=== PATIENT | male | born 1950 | race African-American/Black ===

== ENCOUNTER 2020-01-30 01:01 | Inpatient (IN) | payer MEDICARE, MEDICAID ==
[~2020-01-30] VITALS: Ht 182.9 cm; Wt 88.0 kg
[2020-01-30] MEDS ORDERED: SODIUM CHLORIDE 0.9% 1,000 ML IV ONE (01:30)
[2020-01-30] MEDS ORDERED: NALOXONE HCL 1 MG/ML 2ML VIAL IV ONE (01:30)
[2020-01-30 01:57] LABS: BASOPHILS % 0.3 % (0.0-2.0); EOSINOPHILS % 5.3 % (0.0-5.0); HEMATOCRIT. 50.5 % (42.0-52.0); HEMOGLOBIN. 16.9 g/dL (14.0-18.0); LYMPHOCYTES % 19.9 % (20.0-50.0); MEAN CORPUSCULAR HEMOGLOBIN 27.8 pg (28.0-32.0); MEAN PLATELET VOLUME 8.2 fl (7.4-10.4); MONOCYTES % 5.5 % (2.0-8.0); PLATELET 195 x1000/uL (130-400); RED BLOOD CELL COUNT 6.08 mill/uL (4.7-6.1); RED CELL DISTRIBUTION WIDTH 16.4 % (11.6-14.6)
[2020-01-30 02:01] LABS: CLARITY URINE CLEAR (CLEAR); COLOR URINE YELLOW (YELLOW); KETONES URINE NEGATIVE (NEGATIVE); LEUKOCYTE ESTERASE URINE TRACE (NEGATIVE); NITRITE URINE NEGATIVE (NEGATIVE); OCCULT BLOOD URINE 3+ (NEGATIVE); PROTEIN URINE TRACE (NEGATIVE); SPECIFIC GRAVITY URINE 1.011 (1.005-1.030)
[2020-01-30 02:06] LABS: CHLORIDE 105 mEq/L (98-107)
[2020-01-30 02:10] LABS: ETHANOL BLOOD < 10 mg/dL
[2020-01-30 02:13] LABS: CREATINE KINASE 665 IU/L (39-308)
[2020-01-30 02:15] LABS: *AMPHETAMINES SCREEN URINE NEGATIVE (NEGATIVE); *BARBITURATES SCREEN URINE NEGATIVE (NEGATIVE); *BENZODIAZEPINES SCREEN URINE NEGATIVE (NEGATIVE); *COCAINE SCREEN URINE PRESUMTIVE POSITIVE (NEGATIVE); CANNABINOID URINE SCREEN NEGATIVE (NEGATIVE); METHADONE URINE SCREEN NEGATIVE (NEGATIVE); OPIATES URINE SCREEN NEGATIVE (NEGATIVE)
[2020-01-30 02:16] LABS: PHENCYCLIDINE URINE SCREEN PRESUMTIVE POSITIVE (NEGATIVE)
[2020-01-30] MEDS ORDERED: LEVETIRACETAM 500MG PREMIX 100 ML IV ONE (03:00)
[2020-01-30] MEDS ORDERED: SODIUM CHLORIDE 0.9% 1000ML BAG (SEPSIS BOLUS) IV ONE (03:00)
[2020-01-30] MEDS ORDERED: DIPHENHYDRAMINE 50MG/ML VIAL IV PRN (09:00)
[2020-01-30] MEDS ORDERED: ACETAMINOPHEN 325MG TABLET PO PRN (09:00)
[2020-01-30] MEDS ORDERED: IPRATROPIUM/ALBUTEROL 0.5-3(2.5)MG/3ML NEB HHN PRN (09:00)
[2020-01-30] MEDS ORDERED: ONDANSETRON HCL 4MG/2ML INJ IV PRN (09:00)
[2020-01-30 09:32] VITALS: BP 152/89
[2020-01-30] MEDS: SODIUM CHLORIDE 0.9% 1,000 ML IV SCH ×2 (11:00→21:02)
[2020-01-30 12:00] VITALS: BP 150/95
[2020-01-30] MEDS: LEVETIRACETAM 500MG PREMIX 100 ML IV SCH ×2 (12:24→21:02)
[2020-01-30 15:37] LABS: PHOSPHORUS 3.7 mg/dL (2.5-4.9)
[2020-01-30 15:42] LABS: CREATINE KINASE MB FRACTION 2.7 ng/mL (0.5-3.6)
[2020-01-30 16:00] VITALS: BP 152/95
[2020-01-30] MEDS: ENOXAPARIN 40MG/0.4ML SYR SUBCUT SCH (17:40)
[2020-01-30] MEDS: LACTULOSE 20G/30ML UDC PO SCH ×2 (17:40→21:02)
[2020-01-30 20:00] VITALS: BP_SYST 106; BP_SYST 162; BP_DIAS 106
[2020-01-30] MEDS: CLONIDINE 0.1MG TABLET PO PRN (21:03)
[2020-01-31] VITALS: BP 159/105
[2020-01-31 01:23] LABS: CREATINE KINASE MB FRACTION 2.1 ng/mL (0.5-3.6)
[2020-01-31 04:00] VITALS: BP 145/105
[2020-01-31] MEDS: CLONIDINE 0.1MG TABLET PO PRN (05:39)
[2020-01-31] MEDS: LACTULOSE 20G/30ML UDC PO SCH ×3 (05:39→20:52)
[2020-01-31] MEDS: SODIUM CHLORIDE 0.9% 1,000 ML IV SCH ×2 (06:17→17:34)
[2020-01-31 07:45] LABS: BASOPHILS % 0.6 % (0.0-2.0); EOSINOPHILS % 5.6 % (0.0-5.0); HEMATOCRIT. 40.6 % (42.0-52.0); HEMOGLOBIN. 13.7 g/dL (14.0-18.0); LYMPHOCYTES % 33.8 % (20.0-50.0); MEAN CORPUSCULAR HEMOGLOBIN 27.7 pg (28.0-32.0); MEAN CORPUSCULAR VOLUME 82.1 fL (80.0-94.0); MEAN PLATELET VOLUME 9.3 fl (7.4-10.4); MONOCYTES % 7.2 % (2.0-8.0); NEUTROPHILS % 52.8 % (40.0-76.0); PLATELET 198 x1000/uL (130-400); RED BLOOD CELL COUNT 4.94 mill/uL (4.7-6.1); RED CELL DISTRIBUTION WIDTH 15.6 % (11.6-14.6)
[2020-01-31 08:00] VITALS: BP 131/90
[2020-01-31] MEDS: LEVETIRACETAM 500MG PREMIX 100 ML IV SCH ×2 (08:37→20:52)
[2020-01-31 11:59] LABS: CHLORIDE 113 mEq/L (98-107)
[2020-01-31 12:00] VITALS: BP 136/89
[2020-01-31 12:12] LABS: HDL CHOLESTEROL 56 mg/dL (40-59); LDL CHOLESTEROL 71 mg/dL (5-100)
[2020-01-31] MEDS: ENOXAPARIN 40MG/0.4ML SYR SUBCUT SCH (15:19)
[2020-01-31 20:00] VITALS: BP 150/96
[2020-02-01 00:06] VITALS: BP 156/92
[2020-02-01] MEDS: SODIUM CHLORIDE 0.9% 1,000 ML IV SCH ×2 (03:58→13:00)
[2020-02-01 04:00] VITALS: BP 144/97
[2020-02-01] MEDS: LACTULOSE 20G/30ML UDC PO SCH ×2 (05:54→14:00)
[2020-02-01 07:01] LABS: CHLORIDE 111 mEq/L (98-107)
[2020-02-01 07:07] LABS: BASOPHILS % 0.4 % (0.0-2.0); EOSINOPHILS % 8.1 % (0.0-5.0); HEMATOCRIT. 39.2 % (42.0-52.0); HEMOGLOBIN. 13.3 g/dL (14.0-18.0); MEAN CORPUSCULAR HEMOGLOBIN 27.7 pg (28.0-32.0); MEAN CORPUSCULAR VOLUME 81.6 fL (80.0-94.0); MEAN PLATELET VOLUME 8.9 fl (7.4-10.4); NEUTROPHILS % 52.5 % (40.0-76.0); PLATELET 194 x1000/uL (130-400); RED BLOOD CELL COUNT 4.81 mill/uL (4.7-6.1); RED CELL DISTRIBUTION WIDTH 15.8 % (11.6-14.6)
[2020-02-01 08:00] VITALS: BP 163/109
[2020-02-01] MEDS: LEVETIRACETAM 500MG PREMIX 100 ML IV SCH (08:47)
[2020-02-01] MEDS: CLONIDINE 0.1MG TABLET PO PRN (08:47)
[2020-02-01 12:00] VITALS: BP 145/96
[2020-02-01] MEDS: ENOXAPARIN 40MG/0.4ML SYR SUBCUT SCH (14:00)
[2020-02-01 15:21] VITALS: BP 136/69
[2020-02-01 16:00] VITALS: BP 137/84
== END 2020-02-01 19:00 | disposition home or self-care (01) | DRG 917 ==
LOC: ER 01:01 → EDBD 01:01 → 7WST 02:54 → ENRESERV 07:29
PROVIDERS: ADMIT Internal Medicine; ATTEND Internal Medicine
DX: T50.901A Poisoning by unspecified drugs, medicaments and biological substances, accidental (unintentional), initial encounter (principal); G92 Toxic encephalopathy; M62.82 Rhabdomyolysis; G93.89 Other specified disorders of brain; G40.909 Epilepsy, unspecified, not intractable, without status epilepticus; F19.90 Other psychoactive substance use, unspecified, uncomplicated; Z79.899 Other long term (current) drug therapy; Y92.89 Other specified places as the place of occurrence of the external cause
CPT/HCPCS: 36415; 70551; 71045; 80048; 80053; 80061; 80305; 80320; 81003; 82140; 82550; 82553; 83605; 83735; 84100; 84443; 85025; 93005; 93970; 99291; J1650; J1953; J7030; G0480

== ENCOUNTER 2020-11-25 08:26 | Inpatient (IN) | payer MEDICARE, OTHER, MEDICAID ==
[~2020-11-25] VITALS: Ht 170.2 cm; Wt 76.2 kg
[2020-11-25] MEDS ORDERED: LORAZEPAM 2MG/ML CPJ IV ONE (11:45)
[2020-11-25 12:12] LABS: BASOPHILS % 0.3 % (0.0-2.0); CHLORIDE 108 mEq/L (98-107); EOSINOPHILS % 0.4 % (0.0-5.0); HEMATOCRIT. 43.7 % (42.0-52.0); HEMOGLOBIN. 14.2 g/dL (14.0-18.0); LYMPHOCYTES % 8.6 % (20.0-50.0); MONOCYTES % 5.7 % (2.0-8.0); RED BLOOD CELL COUNT 5.26 mill/uL (4.7-6.1); RED CELL DISTRIBUTION WIDTH 16.7 % (11.6-14.6)
[2020-11-25 12:17] LABS: ETHANOL BLOOD < 10 mg/dL
[2020-11-25 12:47] LABS: PLATELET 151 x1000/uL (130-400)
[2020-11-25 12:48] LABS: MEAN PLATELET VOLUME 9.3 fl (7.4-10.4)
[2020-11-25] MEDS ORDERED: LORAZEPAM 2MG/ML CPJ IM ONE (13:15)
[2020-11-25] MEDS ORDERED: LEVETIRACETAM 500MG PREMIX 100 ML IV ONE ×2 (14:00→15:30)
[2020-11-25] MEDS ORDERED: SODIUM CHLORIDE 0.9% 1,000 ML IV ONE (15:30)
[2020-11-25] MEDS ORDERED: ONDANSETRON HCL 4MG/2ML INJ IV PRN (18:00)
[2020-11-25] MEDS ORDERED: LORAZEPAM 2MG/ML CPJ IV PRN (18:00)
[2020-11-25] MEDS ORDERED: ACETAMINOPHEN 325MG TABLET PO PRN (18:00)
[2020-11-25 21:22] VITALS: BP 129/93
[2020-11-25 21:28] VITALS: BP 129/93
[2020-11-25] MEDS: DOCUSATE SODIUM 250MG CAPSULE PO SCH (22:04)
[2020-11-25] MEDS: LEVETIRACETAM 500MG TABLET PO SCH (22:04)
[2020-11-26] VITALS (7 sets, daily range): BP systolic 106–128; BP diastolic 66–86
[2020-11-26] MEDS: DOCUSATE SODIUM 250MG CAPSULE PO SCH (09:07)
[2020-11-26] MEDS: LEVETIRACETAM 500MG TABLET PO SCH ×2 (09:07→21:05)
[2020-11-26] MEDS ORDERED: KEPP500 MT (16:46)
[2020-11-27] VITALS: BP 111/60
[2020-11-27 04:00] VITALS: BP 101/67
[2020-11-27 08:00] VITALS: BP 110/75
[2020-11-27] MEDS: THIAMINE HCL 100MG TABLET PO SCH (08:50)
[2020-11-27] MEDS: FOLIC ACID 1MG TABLET PO SCH (08:50)
[2020-11-27] MEDS: LEVETIRACETAM 500MG TABLET PO SCH ×2 (08:50→21:12)
[2020-11-27] MEDS: DOCUSATE SODIUM 250MG CAPSULE PO SCH (08:51)
[2020-11-27] MEDS: MULTIVITAMINS,THER W-MINERALS TABLET PO SCH (08:51)
[2020-11-27 12:00] VITALS: BP 118/80
[2020-11-27 15:50] VITALS: BP 128/79
[2020-11-27 17:21] LABS: *AMPHETAMINES SCREEN URINE NEGATIVE (NEGATIVE); *BARBITURATES SCREEN URINE NEGATIVE (NEGATIVE)
[2020-11-27 17:22] LABS: *BENZODIAZEPINES SCREEN URINE NEGATIVE (NEGATIVE); *COCAINE SCREEN URINE PRESUMTIVE POSITIVE (NEGATIVE); CANNABINOID URINE SCREEN NEGATIVE (NEGATIVE); METHADONE URINE SCREEN NEGATIVE (NEGATIVE); OPIATES URINE SCREEN NEGATIVE (NEGATIVE); PHENCYCLIDINE URINE SCREEN NEGATIVE (NEGATIVE)
[2020-11-28 08:00] VITALS: BP 112/74
[2020-11-28] MEDS: DOCUSATE SODIUM 250MG CAPSULE PO SCH (09:35)
[2020-11-28] MEDS: FOLIC ACID 1MG TABLET PO SCH (09:35)
[2020-11-28] MEDS: MULTIVITAMINS,THER W-MINERALS TABLET PO SCH (09:35)
[2020-11-28] MEDS: THIAMINE HCL 100MG TABLET PO SCH (09:35)
[2020-11-28] MEDS: LEVETIRACETAM 500MG TABLET PO SCH (09:35)
[2020-11-28 12:00] VITALS: BP 103/72
[2020-11-28 13:46] VITALS: BP 103/72
== END 2020-11-28 15:52 | disposition home or self-care (01) | DRG 101 ==
LOC: ER 08:26 → ENRESERV 16:23 → 6WST 21:06 → 5WST 11-26 17:17 → 6EST 11-27 15:44
PROVIDERS: ADMIT Internal Medicine; ATTEND Internal Medicine
DX: G40.901 Epilepsy, unspecified, not intractable, with status epilepticus (principal); E87.8 Other disorders of electrolyte and fluid balance, not elsewhere classified; G93.89 Other specified disorders of brain; F14.10 Cocaine abuse, uncomplicated; S09.90XA Unspecified injury of head, initial encounter; I10 Essential (primary) hypertension; F14.11 Cocaine abuse, in remission; X58.XXXA Exposure to other specified factors, initial encounter; Y93.89 Activity, other specified; Z87.828 Personal history of other (healed) physical injury and trauma; Y92.89 Other specified places as the place of occurrence of the external cause; Y99.8 Other external cause status; Z91.19 Patient's noncompliance with other medical treatment and regimen; Z79.899 Other long term (current) drug therapy
CPT/HCPCS: 36415; 70551; 71045; 74018; 80053; 80305; 80320; 85025; 93005; 99291; J1953; J2060; J7030; G0480